=== PATIENT | female | born 1985 | race Caucasian/White ===

== ENCOUNTER 2017-08-06 09:16 | Emergency (ER) | payer OTHER ==
[2017-08-06] MEDS ORDERED: FLUORESCEIN OPHTH 1 MG STRIP As Ordered (09:39)
[2017-08-06] MEDS: FLUORESCEIN OPHTH 1 MG STRIP OS (09:44)
[2017-08-06] MEDS: TETRACAINE 0.5% OPHTH SOLN 4ML OS (09:45)
== END 2017-08-06 10:36 | disposition home or self-care (01) ==
LOC: M ED 09:16
DX: H57.12 Ocular pain, left eye (principal); F41.9 Anxiety disorder, unspecified; F33.9 Major depressive disorder, recurrent, unspecified; Z88.0 Allergy status to penicillin; Z88.2 Allergy status to sulfonamides
CPT/HCPCS: 99283

== ENCOUNTER → 2017-08-30 | Outpatient (REF) | payer OTHER | LOC: M SFHCLERA 18:58 | DX: R68.89 Other general symptoms and signs (principal) ==